=== PATIENT | male | born 1990 | race Two or more races ===

== ENCOUNTER 2020-08-10 16:05 | Emergency (ER) | payer OTHER ==
[~2020-08-10] VITALS: Ht 170.2 cm; Wt 90.7 kg
[2020-08-10] MEDS ORDERED: DexAMETHasone SOD PHOS 10MG/1ML VIAL INJ IV ONE (16:45)
[2020-08-10] MEDS ORDERED: DOXYCYCLINE 100MG/250ML 250 ML IV ONE (16:45)
[2020-08-10] MEDS ORDERED: ZINC SULFATE 220mg CAP or TAB PO ONE (16:45)
[2020-08-10] MEDS ORDERED: ACETAMINOPHEN 500 MG TAB PO ONE (16:45)
[2020-08-10] MEDS ORDERED: SODIUM CHLORIDE 0.9% 1,000 ML IV ONE (16:45)
[2020-08-10] MEDS ORDERED: ASCORBIC ACID 500 MG TAB PO ONE (16:45)
[2020-08-10 17:19] LABS: Basophils # (auto) 0 10 ^3/uL (0-0.2); Basophils % (auto) 0.5 % (0.0-2.0); Eosinophils # (auto) 0 10 ^3/uL (0-0.8); Hemoglobin 15.7 g/dL (13.5-17.5); Lymphocytes # (auto) 1.5 10 ^3/uL (0.4-5.4); Lymphocytes % (auto) 20.6 % (10.0-50.0); Mean Corpuscular Hemoglobin 30.8 pg (28.0-32.0); Mean Corpuscular Hgb Conc. 35.7 g/dL (32.0-36.0); Mean Corpuscular Volume 86.3 fL (80.0-100.0); Monocytes # (auto) 0.7 10 ^3/uL (0-1.3); Monocytes % (auto) 9.1 % (0.0-12.0); Neutrophils # (auto) 5.1 10 ^3/uL (1.6-8.6); Neutrophils % (auto) 69.8 % (37.0-80.0); Nucleated Red Blood Cells % 0.5 %; Platelet Count (auto) 176 10^3/uL (140-450); Red Blood Cells 5.09 10^6/uL (4.5-5.90); Red Cell Distribution Width 12.8 % (11.8-14.3); White Blood Cell 7.3 10^3/uL (4.4-10.8)
[2020-08-10 17:24] LABS: INR 0.95 (0.9-1.15); Partial Thromboplastin Time 32.8 sec (23.0-31.2)
[2020-08-10 17:27] LABS: Albumin 3.7 g/dL (3.4-5.0); Calcium 8.7 mg/dL (8.5-10.1); Potassium 3.7 mmol/L (3.5-5.1)
[2020-08-10 17:32] LABS: BUN/Creatinine Ratio 11.6; Bilirubin, Total 0.5 mg/dL (0.2-1.0); Total Protein 8.1 g/dL (6.4-8.2)
[2020-08-10 18:07] LABS: Urine WBC None Seen /hpf (0 - 3)
[2020-08-10 18:47] LABS: Urine Bacteria NONE SEEN /hpf (None Seen); Urine Blood TRACE /uL (Negative); Urine Hyaline Cast FEW /lpf (0 - 2); Urine Specific Gravity 1.023 (1.001-1.035)
[2020-08-11 02:43] VITALS: BP 104/54
== END 2020-08-11 02:53 | disposition designated cancer center or children's hospital (05) ==
LOC: ER 16:05
DX: U07.1 COVID-19 (principal); J18.9 Pneumonia, unspecified organism; J01.00 Acute maxillary sinusitis, unspecified; R09.02 Hypoxemia; R00.0 Tachycardia, unspecified
CPT/HCPCS: 36415; 71045; 80053; 81001; 82728; 83605; 85025; 85379; 85610; 85730; 87040; 87426; 96365; 96366; 96375; 99285; J1100; J3490